=== PATIENT | female | born 1985 | race Two or more races ===

== ENCOUNTER 2023-07-04 11:54 | Outpatient (CLI) | payer OTHER | END 2023-07-04 13:24 | disposition home or self-care (01) | LOC: PRENATAL 11:54 | PROVIDERS: ATTEND Obstetrics & Gynecology Maternal & Fetal Medicine | DX: O36.80X0 Pregnancy with inconclusive fetal viability, not applicable or unspecified (principal); O30.90 Multiple gestation, unspecified, unspecified trimester; O09.519 Supervision of elderly primigravida, unspecified trimester; Z3A.08 8 weeks gestation of pregnancy ==

== ENCOUNTER 2023-08-09 13:24 | Outpatient (CLI) | payer OTHER | END 2023-08-09 13:25 | disposition home or self-care (01) | LOC: PRENATAL 13:24 | PROVIDERS: ATTEND Obstetrics & Gynecology Maternal & Fetal Medicine | DX: O36.80X0 Pregnancy with inconclusive fetal viability, not applicable or unspecified (principal); O09.519 Supervision of elderly primigravida, unspecified trimester; Z36.9 Encounter for antenatal screening, unspecified; Z3A.13 13 weeks gestation of pregnancy ==

== ENCOUNTER 2023-09-21 12:42 | Outpatient (CLI) | payer OTHER | END 2023-09-21 12:43 | disposition home or self-care (01) | LOC: PRENATAL 12:42 | PROVIDERS: ATTEND Obstetrics & Gynecology Maternal & Fetal Medicine | DX: O35.3XX0 Maternal care for (suspected) damage to fetus from viral disease in mother, not applicable or unspecified (principal); O44.00 Complete placenta previa NOS or without hemorrhage, unspecified trimester; O09.519 Supervision of elderly primigravida, unspecified trimester; Z3A.20 20 weeks gestation of pregnancy ==

== ENCOUNTER → 2023-10-17 15:07 | Outpatient (CLI) | payer OTHER | END | disposition home or self-care (01) | LOC: PRENATAL 15:07 | PROVIDERS: ATTEND Obstetrics & Gynecology Maternal & Fetal Medicine | DX: O26.849 Uterine size-date discrepancy, unspecified trimester (principal); O09.519 Supervision of elderly primigravida, unspecified trimester; Z3A.23 23 weeks gestation of pregnancy ==

== ENCOUNTER 2023-12-14 12:41 | Outpatient (CLI) | payer OTHER | END 2023-12-14 12:42 | disposition home or self-care (01) | LOC: PRENATAL 12:41 | PROVIDERS: ATTEND Obstetrics & Gynecology Maternal & Fetal Medicine | DX: O26.849 Uterine size-date discrepancy, unspecified trimester (principal); O36.8199 Decreased fetal movements, unspecified trimester, other fetus; O09.519 Supervision of elderly primigravida, unspecified trimester; Z3A.32 32 weeks gestation of pregnancy ==